=== PATIENT | male | born 1955 | race Two or more races ===

== ENCOUNTER → 2017-03-27 | Outpatient (CLI) | payer OTHER ==
[~2017-03-27] MED LIST: BARIUM SULFATE 135 ML (E-Z HD) PO; SIMETH/SOD BICARB/CIT AC PKT (E-Z- GAS II) PO
== END | disposition home or self-care (01) ==
LOC: RAD 09:06
DX: R13.10 Dysphagia, unspecified (principal)
CPT/HCPCS: 74240